=== PATIENT | male | born 2000 | race Caucasian/White ===

== ENCOUNTER 2018-12-10 16:22 | Observation (INO) ==
[2018-12-10] MEDS ORDERED: KETOROLAC 30 MG/ML VIAL IV STA (17:05)
[2018-12-10] MEDS ORDERED: SODIUM CHLORIDE 0.9% 1000ML 1,000 ML IV SCH (17:15)
[2018-12-10 17:59] LABS: Basophils # (auto) 0.01 K/uL (0-0.2); Basophils % (auto) 0.1 %; Hematocrit (blood only) 49.1 % (42-52); Hemoglobin 17.6 g/dL (14.0-18.0); Immature Granulocytes # (auto) 0.03 K/uL (0.00-0.02); Immature Granulocytes % (auto) 0.2 %; Lymphocytes # (auto) 0.97 K/uL (1.2-3.4); Lymphocytes % (auto) 6.8 %; Mean Corpuscular Hemoglobin 29.9 pg (25-34); Mean Corpuscular Hgb Conc 35.8 g/dL (32-36); Mean Corpuscular Volume 83.5 fL (80-100); Mean Platelet Volume 11.3 fL (7.4-10.4); Monocytes # (auto) 0.65 K/uL (0.11-0.59); Monocytes % (auto) 4.6 %; Neutrophils # (auto) 12.59 K/uL (1.4-6.5); Neutrophils % (auto) 88.3 %; Platelet Count 225 K/uL (130-400); RDW Coefficient of Variation 13.2 % (11.5-14.5); RDW Standard Deviation 39.8 fL (36.4-46.3); Red Blood Count 5.88 M/uL (4.7-6.1); White Blood Count 14.25 K/uL (4.8-10.8)
[2018-12-10 18:19] LABS: Albumin Level 5.6 gm/dl (3.4-5.0); BUN Creatinine Ratio 15.8 (10-20); Calcium 10.1 mg/dl (8.5-10.1); Creatinine Clr Calc Pharmacy 97.3 ml/min; Est GFR (African American) 101.3; Est GFR (Non-African American) 87.4; Potassium 3.1 mmol/L (3.5-5.1)
[2018-12-10 18:22] LABS: Albumin Globulin Ratio 1.3 (0.9-2); Bilirubin,Total 0.9 mg/dl (0.2-1); Globulin 4.2 gm/dl (2.5-4.0); Total Protein 9.8 gm/dl (6.4-8.2)
[2018-12-10] MEDS ORDERED: IOVERSOL 100ml IV PRN (18:48)
--- NOTE | 2018-12-10 19:16 | CT Scan Report ---
CT OF THE ABDOMEN AND PELVIS WITH CONTRAST CLINICAL HISTORY: Epigastric pain. COMPARISON STUDY: None. TECHNIQUE: Following IV administration of 92 mL of Optiray-320, axial images of the abdomen and pelvi s were obtained from the lung bases to the proximal femurs. Images were reviewed in the axial, sagitt al, and coronal planes. IV contrast was administered without complication. Automated exposure contro l was utilized for the study. A dose lowering technique was utilized adhering to the principles of A CONG. CT DOSE: 267.06 mGy.cm FINDINGS: Lung bases are unremarkable. No no pneumatosis, free air or portal venous gas is present. T here is periportal edema within the liver. Mild pericholecystic fluid is noted. The spleen, adrenal g lands, kidneys and pancreas are normal. There is no hydronephrosis. There is no biliary or pancreatic ductal dilatation. There is no peripancreatic infiltration. There is no evidence for a bowel obstruc tion. The appendix is normal. Trace fluid within the pelvis is noted. There is no abscess. Major vasc ulature is patent. Apparent wall thickening of the ascending colon and transverse colon is likely due to underdistention. Wall thickening of several portions of the colon and rectum is probably due to u nderdistention. No suspicious osseous lesions are noted. IMPRESSION: 1. Mild pericholecystic fluid. This is nonspecific and may be related to hydration given periportal e laura however a right quadrant ultrasound is recommended to exclude acute cholecystitis. 2. Normal appendix. No bowel obstruction. 3. Apparent wall thickening of several portions of the colon and rectum which is likely due to underd istention. A mild nonspecific colitis could appear similar. 4. Trace fluid within the pelvis. Electronically signed by: Ignacio Pereyra M.D. 12/10/2018 7:14 PM
--- NOTE | 2018-12-10 20:23 | Ultrasound Report ---
US gallbladder CLINICAL HISTORY: Abdominal pain. COMPARISON STUDY: CT of the abdomen and pelvis December 10, 2018. FINDINGS: The liver is sonographically normal. There is no biliary ductal dilatation. The common bile duct measures 3 mm in caliber. There are multiple stones within the gallbladder. The gallbladder is mildly distended. Mild gallbladder wall thickening is noted. Sonographic Ortega sign could not be ass essed for this patient. There is trace pericholecystic fluid. The pancreas is within normal limits al though the tail is slightly obscured. There is no right hydronephrosis. IMPRESSION: 1. Cholelithiasis, mild gallbladder wall thickening and trace pericholecystic fluid. These findings f avor acute cholecystitis. 2. No biliary ductal dilatation. Electronically signed by: Ignacio Pereyra M.D. 12/10/2018 8:22 PM
[2018-12-10] MEDS ORDERED: SODIUM CHLORIDE 0.9% 1000ML 1,000 ML IV ONE (20:45)
--- NOTE | 2018-12-10 21:39 | History & Physical Report ---
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 The pain is mainly right sided with radiation to the back, his pain is better after pain medication. He has had nausea without vomiting and has been anorexic today. He denies cahnge in bowel habits or urinary symptoms. A CT scan and US both are consistent with acute cholecystitis with pericholecystic fluid and a thickened wall, His WBC is 14. He has been afebrile. Allergies Allergy/AdvReac Type Severity Reaction Status Date / Time No Known Allergies Allergy Unverified 12/10/18 18:08 Home Medications Home Medications Medication Instructions Recorded Confirmed Type No Known Home Medications 12/10/18 12/10/18 History Past Med/Surg History Medical History No pertinent past medical history Social History Preferred Language: Cambodian Feels Safe at Home: Yes Smoking Status: Never smoker Review of Systems + anorexia; no fever, no chills and no sweats no scleral icterus no problem reported no cough and no dyspnea no chest pain and no dyspnea + abdominal pain and + nausea; no vomiting and no change in stools no dysuria + back pain; no neck pain and no joint pain no pruritus, no yellowing of the skin and no problem reported no localized weakness and no generalized weakness no depression no problem reported no problem reported no problem reported Physical Exam Constitutional: well developed and well nourished; no acute distress Eyes: + anicteric sclerae and PERRL ENMT: external ear and nose normal, oropharynx normal Neck: trachea midline Respiratory: normal respiratory effort, lungs clear to auscultation Cardiovascular: RRR, no murmur, no edema Gastrointestinal (Abdomen): Inspection/Auscultation: abdomen normal to inspection and normal bowel sounds; abdomen not distended Percussion/Palpation: + abdomen tender and abdomen soft; no guarding Musculoskeletal: Head/Neck/Chest: normocephalic and head atraumatic Skin: no rashes, warm and dry Neurologic: moves all extremities Psychiatric: Orientation: alert and oriented x 3 ASA Classification ASA ASA1E Results & Data Vital Signs (Past 12 Hours) Vital Signs Temp Pulse Pulse Resp BP BP Pulse Ox 12/10/18 19:13 72 18 122/87 99 12/10/18 16:33 36.5 C 70 18 121/72 95 US gallbladder CLINICAL HISTORY: Abdominal pain. COMPARISON STUDY: CT of the abdomen and pelvis December 10, 2018. FINDINGS: The liver is sonographically normal. There is no biliary ductal dilatation. The common bile duct measures 3 mm in caliber. There are multiple stones within the gallbladder. The gallbladder is mildly distended. Mild gallbladder wall thickening is noted. Sonographic Ortega sign could not be assessed for this patient. There is trace pericholecystic fluid. The pancreas is within normal limits although the tail is slightly obscured. There is no right hydronephrosis. IMPRESSION: 1. Cholelithiasis, mild gallbladder wall thickening and trace pericholecystic fluid. These findings favor acute cholecystitis. 2. No biliary ductal dilatation. CT OF THE ABDOMEN AND PELVIS WITH CONTRAST CLINICAL HISTORY: Epigastric pain. COMPARISON STUDY: None. TECHNIQUE: Following IV administration of 92 mL of Optiray-320, axial images of the abdomen and pelvis were obtained from the lung bases to the proximal femurs. Images were reviewed in the axial, sagittal, and coronal planes. IV contrast was administered without complication. Automated exposure control was utilized for the study. A dose lowering technique was utilized adhering to the principles of ALARA. CT DOSE: 267.06 mGy.cm FINDINGS: Lung bases are unremarkable. No no pneumatosis, free air or portal venous gas is present. There is periportal edema within the liver. Mild pericholecystic fluid is noted. The spleen, adrenal glands, kidneys and pancreas are normal. There is no hydronephrosis. There is no biliary or pancreatic ductal dilatation. There is no peripancreatic infiltration. There is no evidence for a bowel obstruction. The appendix is normal. Trace fluid within the pelvis is noted. There is no abscess. Major vasculature is patent. Apparent wall thickening of the ascending colon and transverse colon is likely due to underdistention. Wall thickening of several portions of the colon and rectum is probably due to underdistention. No suspicious osseous lesions are noted. IMPRESSION: 1. Mild pericholecystic fluid. This is nonspecific and may be related to hydr ation given periportal edema however a right quadrant ultrasound is recommended to exclude acute cholecystitis. 2. Normal appendix. No bowel obstruction. 3. Apparent wall thickening of several portions of the colon and rectum which is likely due to underdistention. A mild nonspecific colitis could appear similar. 4. Trace fluid within the pelvis. Code Status & VTE Plan VTE Prophylaxis Plan VTE Prophylaxis will be ordered: Yes
--- NOTE | 2018-12-10 22:23 | Emergency Department Note ---
Entered by Dulce Metz acting as a scribe for History of Present Illness General Chief complaint: Abdominal Pain Stated complaint: SEVERE STOMACH PAIN Time Seen by Provider: 12/10/18 16:59 Source: patient Limitations: no limitations History of Present Illness Provider complaint: Abdominal Pain Onset (ago): week(s) 1 Location: abdomen Radiation: back Severity: severe Pain Consistency: + intermittent Maximum Pain Intensity: 7 Current Pain Intensity: 7 Quality: + sharp Relieved By: + none Exacerbated By: + other (milk) Associated symptoms: + denies other symptoms Treatments prior to arrival: none The patient is a 18 year old who presents to the Emergency Department with complaints of severe abdominal pain that began 5 hours ago. The pain radiates into his back and rib cage. The patient had similar symptoms that resolved within two hours one week ago and three days ago he had an episode that lasted one hour. He has had normal bowel movements. The patient has had no recent surgeries. He denies having a fever, headache, or urinary symptoms. The patient has not traveled anywhere recently and is not allergic to anything. The patient rate his pain as a 7 out of 10 in severity. Home Medications Home Medications Medication Instructions Recorded Confirmed Type No Known Home Medications 12/10/18 12/10/18 History Allergies Allergy/AdvReac Type Severity Reaction Status Date / Time No Known Allergies Allergy Unverified 12/10/18 18:08 Past Med/Surg History Medical History No pertinent past medical history Social History Preferred Language: Samoan Communication Ability: Effective User Interface Artist Required: No Beliefs That Will Affect Care: None Current Living Situation: Alone Other Information That Helps Us Care for You: No Feels Safe at Home: Yes Safety Concerns: Feels Safe At This Time Smoking Status: Never smoker Hx Alcohol Use: No Hx Substance Use: No Review of Systems See HPI for pertinent positives & negatives. and A total of 10 systems reviewed and were otherwise negative Physical Exam Vital Signs Vital Signs - 24 hr 12/10/18 16:33 12/10/18 19:13 Temperature 36.5 C Temperature Source Oral Sepsis Recent Fever Within 48 Hours No Sepsis New/Unexplained Change in Mental Status No Sepsis Action Taken by Nursing No Action Required Pulse Rate 70 Pulse Rate [Right Finger] 72 Respiratory Rate 18 18 Respiratory Effort / Characteristics Non-Labored Spontaneous Respiratory Depth Normal Respiratory Pattern Regular Blood Pressure 121/72 Blood Pressure [Right Arm] 122/87 Blood Pressure Mean 88 Blood Pressure Mean [Right Arm] 98 Blood Pressure Position Sitting Blood Pressure Position [Right Arm] Lying Pulse Oximetry 95 99 Oxygen Delivery Method Room Air General: Non-ill appearing uncomfortable appearing male in no acute distress. Complaints of epigastric pain. HEENT: Normal cephalic atraumatic. Pupils are equal round and reactive to light. Extraocular movements are intact. Oropharynx is pink with moist mucous membranes. No swelling of the mouth lips or tongue. Neck: Supple with a midline trachea. No meningeal signs or stiffness, no JVD or bruits. No Stridor. Chest: Clear to auscultation bilaterally. No wheezes or rhonchi. No increased work of breathing. Heart: regular rate and rhythm. Abdomen: Tender to palpation in the epigastric area, no lower abdominal tend erness, nondistended without rebound guarding or rigidity. Extremities: No cyanosis clubbing or edema. No calf tenderness or asymmetry Spine/Back. Non tender to palpation. No CVA tenderness Skin: Good turgor without rashes. Neurologic exam: Cranial nerves two through 12 are intact. Motor and sensation are intact and symmetrical throughout. Course 170: Medical records reviewed. The patient was seen in room C8, a physical exam was performed. 1699: Appears more comfortable, ordered CT scan. 1939: The patient declines further pain medications, he is feeling better. 2046: I spoke with general surgery who agreed to come in a see the patient. 2138: I spoke with Dr. Sullivan, General Surgery, who agreed to accept the patient for further evaluation. Administered Medications Ampicillin Sodium/Sulbactam Sodium 3,000 mg/ Sodium Chloride 108 mls @ 200 mls/hr IV Q6H [facility]; Protocol Stop: 12/20/18 22:59 Last Admin: 12/10/18 23:29 Dose: 200 mls/hr Documented by: [id number] Ioversol (Optiray 320 100ml) 92 ml IV ONCE PRN PRN Reason: Interaction Checking Stop: 12/14/18 18:47 Last Admin: 12/10/18 18:49 Dose: 92 ml Documented by: [id number] Discontinued Medications Sodium Chloride (Nss 1000ml) 1,000 mls @ 999 mls/hr IV .Q1H1M [facility] Stop: 12/10/18 18:15 Last Infusion: 12/10/18 18:35 Dose: 0 mls/hr Documented by: [id number] Admin: 12/10/18 17:36 Dose: 999 mls/hr Documented by: [id number] Sodium Chloride (Nss 1000ml) 1,000 mls @ 999 mls/hr IV .Q1H1M ONE Stop: 12/10/18 21:45 Last Infusion: 12/10/18 22:19 Dose: 0 mls/hr Documented by: [id number] Admin: 12/10/18 20:47 Dose: 999 mls/hr Documented by: [id number] Ketorolac Tromethamine (Toradol) 30 mg IV NOW STA Stop: 12/10/18 17:06 Last Admin: 12/10/18 17:36 Dose: 30 mg Documented by: [id number] Ondansetron HCl (Zofran) 4 mg IV NOW STA Stop: 12/10/18 22:37 Last Admin: 12/10/18 23:28 Dose: 4 mg Documented by: [id number] Medical Decision Making Differential Diagnosis Differential Diagnosis: Pancreatitis, gall bladder disease, gastritis, lactose intolerance, electrolyte or metabolic abnormality. Medical Records Attestation: I reviewed the patient's medical records. Home Medications Current Medication List: was personally reviewed by me Laboratory Data Attestation: I reviewed the patient's lab results. Result diagrams: 12/10/18 17:27 12/10/18 17:27 Lab Results 12/10/18 12/10/18 Range/Units 17:27 17:27 WBC 14.25 H (4.8-10.8) K/uL RBC 5.88 (4.7-6.1) M/uL Hgb 17.6 (14.0-18.0) g/dL Hct 49.1 (42-52) % MCV 83.5 (80-100) fL MCH 29.9 (25-34) pg MCHC 35.8 (32-36) g/dL RDW Std Deviation 39.8 (36.4-46.3) fL RDW Coeff of Dion 13.2 (11.5-14.5) % Plt Count 225 (130-400) K/uL MPV 11.3 H (7.4-10.4) fL Immature Gran % (Auto) 0.2 % Neut % (Auto) 88.3 % Lymph % (Auto) 6.8 % [place] % (Auto) 4.6 % Eos % (Auto) 0.0 % Baso % (Auto) 0.1 % Immature Gran # (Auto) 0.03 H (0.00-0.02) K/uL Neut # (Auto) 12.59 H (1.4-6.5) K/uL Lymph # (Auto) 0.97 L (1.2-3.4) K/uL Churchill # (Auto) 0.65 H (0.11-0.59) K/uL Eos # (Auto) 0.00 (0-0.5) K/uL Baso # (Auto) 0.01 (0-0.2) K/uL Sodium 137 (136-145) mmol/L Potassium 3.1 L (3.5-5.1) mmol/L Chloride 101 (98-107) mmol/L Carbon Dioxide 27 (21-32) mmol/L Anion Gap 9.0 (3-11) BUN 19 H (7-18) mg/dl Creatinine 1.19 (0.6-1.4) mg/dl Est Cr Clr Drug Dosing 97.3 ml/min Est GFR ( Amer) 101.3 Est GFR (Non-Af Amer) 87.4 BUN/Creatinine Ratio 15.8 (10-20) Glucose 99 (70-99) mg/dl Calcium 10.1 (8.5-10.1) mg/dl Total Bilirubin 0.9 (0.2-1) mg/dl AST 31 (15-37) U/L ALT 59 (12-78) U/L Alkaline Phosphatase 76 (45-117) U/L Total Protein 9.8 H (6.4-8.2) gm/dl Albumin 5.6 H (3.4-5.0) gm/dl Globulin 4.2 H (2.5-4.0) gm/dl Albumin/Globulin Ratio 1.3 (0.9-2) Lipase 119 (73-393) U/L Imaging Data Radiologist's Impression: Radiology results as stated below per my review and the radiologist's interpretation: CT OF THE ABDOMEN AND PELVIS WITH CONTRAST CLINICAL HISTORY: Epigastric pain. COMPARISON STUDY: None. TECHNIQUE: Following IV administration of 92 mL of Optiray-320, axial images of the abdomen and pelvis were obtained from the lung bases to the proximal femurs. Images were reviewed in the axial, sagittal, and coronal planes. IV contrast was administered without complication. Automated exposure control was utilized for the study. A dose lowering technique was utilized adhering to the principles of ALARA. CT DOSE: 267.06 mGy.cm FINDINGS: Lung bases are unremarkable. No no pneumatosis, free air or portal venous gas is present. There is periportal edema within the liver. Mild per icholecystic fluid is noted. The spleen, adrenal glands, kidneys and pancreas are normal. There is no hydronephrosis. There is no biliary or pancreatic ductal dilatation. There is no peripancreatic infiltration. There is no evidence for a bowel obstruction. The appendix is normal. Trace fluid within the pelvis is noted. There is no abscess. Major vasculature is patent. Apparent wall thickening of the ascending colon and transverse colon is likely due to underdistention. Wall thickening of several portions of the colon and rectum is probably due to underdistention. No suspicious osseous lesions are noted. IMPRESSION: 1. Mild pericholecystic fluid. This is nonspecific and may be related to hydration given periportal edema however a right quadrant ultrasound is recommended to exclude acute cholecystitis. 2. Normal appendix. No bowel obstruction. 3. Apparent wall thickening of several portions of the colon and rectum which is likely due to underdistention. A mild nonspecific colitis could appear similar. 4. Trace fluid within the pelvis. Electronically signed by: Ignacio Pereyra M.D. 12/10/2018 7:14 PM US gallbladder CLINICAL HISTORY: Abdominal pain. COMPARISON STUDY: CT of the abdomen and pelvis December 10, 2018. FINDINGS: The liver is sonographically normal. There is no biliary ductal dilatation. The common bile duct measures 3 mm in caliber. There are multiple stones within the gallbladder. The gallbladder is mildly distended. Mild gallbladder wall thickening is noted. Sonographic Ortega sign could not be assessed for this patient. There is trace pericholecystic fluid. The pancreas is within normal limits although the tail is slightly obscured. There is no right hydronephrosis. IMPRESSION: 1. Cholelithiasis, mild gallbladder wall thickening and trace pericholecystic fluid. These findings favor acute cholecystitis. 2. No biliary ductal dilatation. Electronically signed by: Ignacio Pereyra M.D. 12/10/2018 8:22 PM Blood Pressure Blood Pressure Findings: Elevated blood pressure Blood Pressure Disposition: further management by hospitalist MERCEDES Feliz This patient comes in as described above. he has had intermittent severe abdominal pain off and on for couple days when I saw him initially he has been having pain in the epigastric area and to a lesser degree the right upper abdomen. He appears uncomfortable. He has noticed it more after he has dairy. He has had no fever or chills. IV access established and he was kept n.p.o. He was given 2 L of IV normal saline boluses while he was in the ER and tolerated these well. His white count is elevated 14. He has no acute electrolyte or metabolic abnormalities. his LFTs are unremarkable. He has nothing she has a UTI or kidney stone. I did do a CAT scan of the abdomen and he has a normal appendix. there is some small potential pericholecystic fluid and ultrasound of the gallbladder was recommended this was obtained and shows findings likely consistent with acute cholecystitis. his gallbladder is mildly enlarged and there is some stones and a small amount of fluid li. Based on this, I consulted Dr. Rod, on-call surgeon, who promptly came and saw the patient. He is can keep him on IV fluids and IV antibiotics overnight and likely perform gallbladder surgery tomorrow. Impression & Plan Acute cholecystitis, Right upper quadrant abdominal pain, Gallstone, Dehydration Discharge Plan Visit Data *Final* Discharge Date/Time: 12/10/18 22:21 Chief Complaint: Abdominal Pain Stated Complaint: SEVERE STOMACH PAIN ED Provider: Abbe Cain Discharge Problem: Acute cholecystitis, Right upper quadrant abdominal pain, Gallstone, Dehydration Patient Disposition: Admitted As Inpatient Discharge Instructions Interventions: ED Discharge Assessment Last Done: 12/10/18 22:21 Discharge Problem: Gallstone Qualifiers: Cholecystitis presence: with cholecystitis Cholecystitis acuity: acute Biliary obstruction: without biliary obstruction Qualified Code(s): K80.00 - Calculus of gallbladder with acute cholecystitis without obstruction The scribe's documentation has been prepared under my direction and personally reviewed by me in its entirety. I confirm that the note above accurately reflects all work, treatment, procedures, and medical decision making performed by me.
[2018-12-10] MEDS ORDERED: MoRPHine SULFATE 10 MG/ML CARP/VIAL IV PRN (22:36)
[2018-12-10] MEDS ORDERED: MoRPHine SULFATE 4 MG/ML 1 ML CARP\\VIAL IV PRN (22:36)
[2018-12-10] MEDS ORDERED: IBUPROFEN 200 MG TAB PO PRN (22:36)
[2018-12-10] MEDS ORDERED: OXYCODONE/ACETAMINOPHEN 5mg/325mg TAB PO PRN ×2 (22:36)
[2018-12-10] MEDS ORDERED: MoRPHine SULFATE 2 MG/ML CARP IV PRN (22:36)
[2018-12-10] MEDS ORDERED: ACETAMINOPHEN 325 MG TAB PO PRN (22:36)
[2018-12-10] MEDS ORDERED: ONDANSETRON INJ 2 MG/ML 2 ML VIAL IV STA (22:36)
[2018-12-10] MEDS: AMPICILLIN/SULBACTAM SOD 3,000 MG in 0.9 % SODIUM CHLORIDE 100 ML IV SCH (23:29)
[2018-12-11] MEDS: LACTATED RINGER'S 1,000 ML IV SCH ×4 (00:06→19:04)
[2018-12-11] MEDS: AMPICILLIN/SULBACTAM SOD 3,000 MG in 0.9 % SODIUM CHLORIDE 100 ML IV SCH ×4 (05:08→22:08)
[2018-12-11] MEDS ORDERED: CEFAZOLIN 2000MG 2,000 MG/15 ML SYR IV SCH (06:00)
--- NOTE | 2018-12-11 09:32 | Surgery Progress Note ---
Date of Service December 11, 2018 Assessment & Plan (1) Acute cholecystitis: Proceed with laparoscopic cholecystectomy today. Informed pt of procedure and risks and informed consent obtained by Dr. Barry. Continue IV abx , IV fluids, pain management as needed Will likely go home tomorrow morning Dr. Barry has seen pt, agrees with above. Subjective not having any pain this morning no n/v no chest pain/shortness of breath talked with his uncle who recommended proceeding with cholecystectomy. He wants to proceed with procedure today. Physical Exam Constitutional: WD/WN, vitals as above Respiratory: normal respiratory effort; no respiratory distress Skin: no rashes, warm and dry Psychiatric: A+Ox3, euthymic affect Results & Data Vital Signs (Past 12 Hours) Vital Signs Temp Pulse Resp BP Pulse Ox 12/11/18 07:32 36.7 C 68 16 106/61 98 12/10/18 22:30 36.9 C 90 16 128/75 97
[2018-12-11 11:42] LABS: Appearance Urine Clear (Clear); Bilirubin Urine Negative (Negative); Blood Urine Negative (Negative); Color Urine Yellow; Glucose Urine UA Negative (Negative); Ketones Urine Negative (Negative); Leukocyte Esterase Urine Negative (Negative); Nitrite Urine Negative (Negative); Protein Urine Negative (Negative); Specific Gravity Urine 1.017 (1.000-1.030); Urobilinogen Urine Negative (Negative)
--- NOTE | 2018-12-11 12:35 | Anesthesiology Consultation ---
Date of Service December 11, 2018 Assessment & Plan (1) Encounter for pre-operative examination: History Surgery Operation Date: 12/11/18 07:00 Proposed Procedures p Laparoscopic Cholecystectomy, Possible Cholangiogram - Too Barry MD Height/Weight Height: 5 ft 10 in Weight: 69.5 kg Allergies Allergy/AdvReac Type Severity Reaction Status Date / Time No Known Allergies Allergy Unverified 12/10/18 18:08 Medications Home Medications Medication Instructions Recorded Confirmed Last Taken No Known Home Medications 12/10/18 12/10/18 Unknown oxycodone-acetaminophen [Percocet] 1 tab PO Q4H PRN #10 tab 12/11/18 Unknown Active Medications Generic Name Dose Route Start Last Admin Trade Name Freq PRN Reason Stop Dose Admin Ampicillin Sodium/Sulbactam 108 mls @ 200 mls/hr 12/10/18 23:00 12/11/18 05:41 Sodium 3,000 mg/ Sodium IV 12/20/18 22:59 Infused Chloride Q6H [facility] Infusion Protocol Lactated Ringer's 1,000 mls @ 125 mls/hr 12/10/18 22:36 12/11/18 08:20 Lr IV 01/09/19 22:35 125 mls/hr .Q8H [facility] Administration Ioversol 92 ml 12/10/18 18:48 12/10/18 18:49 Optiray 320 100ml IV 12/14/18 18:47 92 ml ONCE PRN Administration Interaction Checking NPO Date Last Intake of Fluids: 12/10/18 Time Last Intake of Fluids: 23:59 Date Last Intake of Solids: 12/10/18 Time Last Intake of Solids: 23:59 Past Medical History Medical History No pertinent past medical history Social History Smoking Status: Never smoker Hx Alcohol Use: No Hx Substance Use: No Physical Exam Vital Signs Last Vital Signs Temp 36.7 C 12/11/18 07:32 Pulse 68 12/11/18 07:32 Resp 16 12/11/18 07:32 BP 106/61 12/11/18 07:32 Pulse Ox 98 12/11/18 07:32 Testing Laboratory Results 12/10/18 17:27 12/10/18 17:27 Urine Color Yellow 12/11/18 11:25 Urine Appearance Clear (Clear) 12/11/18 11:25 Urine pH 7.0 (4.5-7.5) 12/11/18 11:25 Ur Specific [place] 1.017 (1.000-1.030) 12/11/18 11:25 Urine Protein Negative (Negative) 12/11/18 11:25 Urine Glucose (UA) Negative (Negative) 12/11/18 11:25 Urine Ketones Negative (Negative) 12/11/18 11:25 Urine Nitrite Negative (Negative) 12/11/18 11:25 Ur Leukocyte Esterase Negative (Negative) 12/11/18 11:25
[2018-12-11] MEDS ORDERED: ATROPINE SULFATE 0.1 MG/ML 10ML SYR IV PRN (12:43)
[2018-12-11] MEDS ORDERED: fentaNYL citrate 100 MCG/2 ML VIAL IV PRN (12:43)
[2018-12-11] MEDS ORDERED: ONDANSETRON INJ 2 MG/ML 2 ML VIAL IV PRN (12:43)
[2018-12-11] MEDS ORDERED: ePHEDrine sulfate 50 MG/ML AMP IV PRN (12:43)
[2018-12-11] MEDS ORDERED: HYDROmorphone INJ 1 MG/ML SYRINGE IV PRN (12:43)
[2018-12-11] MEDS ORDERED: CEFAZOLIN 2000MG 2,000 MG/15 ML SYR IV ONE (12:59)
--- NOTE | 2018-12-11 12:59 | History & Physical Bridge Note ---
Date of Service December 11, 2018 History & Physical Bridge Note I have examined the patient, reviewed the History & Physical and in the interval since the performance of the History & Physical I have noted the following changes of clinical significance: no changes noted
[2018-12-11] MEDS ORDERED: NEOSTIGMINE METHYLSULFATE 5 MG/5 ML SYR ONE (13:19)
[2018-12-11] MEDS ORDERED: SUCCINYLCHOLINE CHLORIDE 20 MG/ML 10 ML VIAL ONE (13:19)
[2018-12-11] MEDS ORDERED: GLYCOPYRROLATE 0.2 MG/ML VIAL ONE (13:19)
[2018-12-11] MEDS ORDERED: DEXAMETHASONE SOD INJ 4 MG/ML VIAL ONE (13:19)
[2018-12-11] MEDS ORDERED: PHENYLEPHRINE HCL 10 MG/ML VIAL ONE (13:19)
[2018-12-11] MEDS ORDERED: ePHEDrine sulfate 50 MG/ML AMP ONE (13:19)
[2018-12-11] MEDS ORDERED: LIDOCAINE HCL 2% 2 ML VIAL/AMP(20MG/ML) INFIL ONE (13:19)
[2018-12-11] MEDS ORDERED: PROPOFOL IV EMULSION 10 MG/ML 20 ML VIAL IV ONE (13:19)
[2018-12-11] MEDS ORDERED: MIDAZOLAM HCL 1 MG/ML 2ML VIAL ONE (13:19)
[2018-12-11] MEDS ORDERED: ONDANSETRON INJ 2 MG/ML 2 ML VIAL ONE ×2 (13:19→15:32)
[2018-12-11] MEDS ORDERED: fentaNYL citrate 100 MCG/2 ML VIAL ONE (13:20)
[2018-12-11] MEDS ORDERED: BACITRACIN OINT 15 GM TUBE ONE (13:50)
[2018-12-11] MEDS ORDERED: BUPIVACAINE 0.5 % 5 MG/1 ML MPF 30ML VIAL ONE (13:50)
[2018-12-11] MEDS ORDERED: LIDOCAINE HCL 1% 20 ML VIAL ONE (13:50)
[2018-12-11] MEDS ORDERED: CONRAY 60% 50 ML VIAL ONE (13:51)
[2018-12-11] MEDS ORDERED: POTASSIUM CHLORIDE 30 MEQ in SODIUM CHLORIDE 0.9% 1000ML 1,000 ML IV SCH (14:00)
[2018-12-11] MEDS ORDERED: LARYING-O-JET KIT (LTA) ONE (15:10)
[2018-12-11] MEDS ORDERED: KETOROLAC 30 MG/ML VIAL ONE (15:35)
--- NOTE | 2018-12-11 15:50 | Post Operative Brief Note ---
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
--- NOTE | 2018-12-11 16:28 | Anesthesiology Progress Note ---
Date of Service December 11, 2018 Anesthesia Post Procedure Vital Signs Vital Signs: Temp Pulse Pulse Resp BP BP Pulse Ox 12/11/18 16:20 85 18 115/66 99 12/11/18 16:10 75 18 117/64 99 12/11/18 16:01 37.5 C 82 18 122/61 99 12/11/18 12:41 36.8 C 90 18 127/72 98 12/11/18 07:32 36.7 C 68 16 106/61 98 12/10/18 22:30 36.9 C 90 16 128/75 97 12/10/18 19:13 72 18 122/87 99 12/10/18 16:33 36.5 C 70 18 121/72 95 Pain Intensity Abdomen: Pain Intensity: 2 Transfer of Care Handoff Completed per policy Notes Mental Status: alert / awake / arousable and participated in evaluation Patient Amnestic to Procedure: Yes Nausea / Vomiting: adequately controlled Pain: adequately controlled Airway Patency, RR, SpO2: stable & adequate BP & HR: stable & adequate Hydration State: stable & adequate Anesthetic Complications: no major complications apparent and Pt Satisfied with anesthetic care
[2018-12-11] MEDS ORDERED: POTASSIUM CHLORIDE 10 MEQ TABCR PO STA (16:50)
--- NOTE | 2018-12-11 17:46 | Operative Report ---
DATE OF OPERATION: 12/11/2018 PREOPERATIVE DIAGNOSES: Acute cholecystitis, cholelithiasis. POSTOPERATIVE DIAGNOSES: Acute cholecystitis, cholelithiasis. PROCEDURE: Laparoscopic cholecystectomy. SURGEON: Too Barry MD. ANESTHESIA: General. ESTIMATED BLOOD LOSS: About 10 mL. FINDINGS: Significant inflammation on the gallbladder wall, gallbladder wall thickening and edema. COMPLICATIONS: None. INDICATIONS FOR THE PROCEDURE: This is a 18-year-old gentleman who presented to ED with acute abdominal pain. The patient was diagnosed of acute cholecystitis with gallstone and patient will be required to do laparoscopic cholecystectomy, possible open, possible cholangiogram. I did talk to the patient about the benefit and risk, alternate procedure. I indicated the risks may include but not limited such as bleeding, infection, injury to common bile duct, injury to the bowel, may need ERCP, even . The patient understands. He signed informed consent and I answered all questions. DETAILS OF PROCEDURE: We brought the patient to the OR, put the patient in the supine position. The patient received SCD on bilateral legs to prevent DVT. Also, patient received 2 grams of Ancef IV for prophylactic antibiotic. The patient received general anesthesia without difficulty. The abdomen was appropriately draped in routine sterile fashion. After time out, I injected local anesthesia by using 1% lidocaine mixed with 0.5% Marcaine just above umbilicus, made a small incision just above umbilicus, opened fascia and opened peritoneum under direct vision, put a Venkatesh trocar in, connected to CO2 to create pneumoperitoneum. Flow rate is 6 liter per minute. Pressure not more than 14 mmHg. Once we got a nice pneumoperitoneum, we put a camera in, looked around the abdomen shows normal finding of the liver. The gallbladder shows significant inflammation on the gallbladder wall, gallbladder wall thickening, edema, confirmed diagnosis of acute cholecystitis. Then, we put another three 5 mm trocars on the right upper quadrant. Once all the trocars are in, we put a grasper in and hold the base of the gallbladder, because of the gallbladder significant inflammation and distention, I have to use a large needle to decompress the gallbladder first. Then, we used a grasper to hold the base of gallbladder, put a direction to the diaphragm, another grasper to hold the pouch of gallbladder, put lateral to expunge triangle of Calot. The cystic duct was identified and mobilized. I put two 5 mm metal clip on the proximal cystic duct, one on the distal cystic duct. I used scissor for transection of the cystic duct. Rechecked and no bile leak, no active bleeding. The cystic artery was identified and mobilized. I put two 5 mm metal clip on the proximal cystic artery, 1 on the distal cystic artery, and used a scissor for transection of cystic artery. Rechecked, no active bleeding. Then we used the Bovie to take down gallbladder from the liver bed. Rechecked, no active bleeding, no bile leak and then we removed the gallbladder through the catch bag, then we reinserted Venkatesh trocar in, connected to CO2 to create pneumoperitoneum, again looked around the abdomen, no active bleeding, no bile leak from the liver bed. Then we removed all trocars under direct vision. No active bleeding from the trocar sites. Pneumoperitoneum was released. Then I closed the umbilical incision, fascial layer by using #1 Vicryl [id number] x2, closed subcutaneous layer by using 2-0 Vicryl interruptedly, closed skin by using 4-0 Vicryl continuous running, closed another three 5 mm trocar site skin-only by using 4-0 Vicryl. Then we put the dressing on. The patient tolerated the procedure well. All instrument, needle and sponge count were correct x2 at the end of the case. The patient transferred to recovery room in stable condition. After procedure, I did talk to the patient and family member about the OR finding and procedure we did, he understands. Also, I informed the patient and family member over the weekend other on-call surgeon will cover him, talk to him tomorrow. I attest to the content of the Intraoperative Record and any orders documented therein. Any exceptions are noted below. DAVID
[2018-12-12] MEDS: AMPICILLIN/SULBACTAM SOD 3,000 MG in 0.9 % SODIUM CHLORIDE 100 ML IV SCH ×2 (05:27→10:32)
[2018-12-12 07:18] LABS: Basophils # (auto) 0.01 K/uL (0-0.2); Basophils % (auto) 0.1 %; Hematocrit (blood only) 45.2 % (42-52); Hemoglobin 15.3 g/dL (14.0-18.0); Immature Granulocytes # (auto) 0.02 K/uL (0.00-0.02); Immature Granulocytes % (auto) 0.2 %; Lymphocytes # (auto) 0.99 K/uL (1.2-3.4); Lymphocytes % (auto) 10.6 %; Mean Corpuscular Hemoglobin 28.9 pg (25-34); Mean Corpuscular Hgb Conc 33.8 g/dL (32-36); Mean Corpuscular Volume 85.4 fL (80-100); Mean Platelet Volume 11.1 fL (7.4-10.4); Monocytes # (auto) 0.81 K/uL (0.11-0.59); Monocytes % (auto) 8.7 %; Neutrophils # (auto) 7.48 K/uL (1.4-6.5); Neutrophils % (auto) 80.4 %; Platelet Count 201 K/uL (130-400); RDW Coefficient of Variation 13.6 % (11.5-14.5); RDW Standard Deviation 42.4 fL (36.4-46.3); Red Blood Count 5.29 M/uL (4.7-6.1); White Blood Count 9.31 K/uL (4.8-10.8)
[2018-12-12 07:56] LABS: Albumin Globulin Ratio 1.1 (0.9-2); Albumin Level 4.1 gm/dl (3.4-5.0); Bilirubin,Total 0.8 mg/dl (0.2-1); Calcium 9.3 mg/dl (8.5-10.1); Creatinine Clr Calc Pharmacy 95.7 ml/min; Est GFR (African American) 99.3; Est GFR (Non-African American) 85.7; Globulin 3.7 gm/dl (2.5-4.0); Potassium 4.1 mmol/L (3.5-5.1); Total Protein 7.8 gm/dl (6.4-8.2)
--- NOTE | 2018-12-12 08:17 | Surgery Progress Note ---
Date of Service December 12, 2018 Assessment & Plan (1) S/P laparoscopic cholecystectomy: POD#1 laparoscopic cholecystectomy Patient progressing well post operatively; pain manageable and tolerating full liquids VSS WBC: 9.3, Tbili: 0.8, AST and ALT up a bit to 122 and 183 respectively Will advance diet as tolerated to regular Will anticipate discharge later today pending pain control and toleration of diet Supervising Physician Co-Signing Physician Notes Pnt S&E, agree with above. POD#1 lap cristin, doing well. incisions with dressing, some strikethrough, pain improved, nontender. d/c to home f/u with Dr. Barry in 2 weeks return precautions, activity restrictions, and wound care instructions reviewed Subjective Patient with some post op incisional pain, but otherwise no major complaints overnight. Tolerating liquid diet without nausea. Mother at bedside. Physical Exam Physical Exam: awake/alert Constitutional: well developed and well nourished; no acute distress Respiratory: normal respiratory effort Gastrointestinal (Abdomen): Inspection/Auscultation: + abdominal surgical incision (incisions with surgical bandages overtop, scant serosang shadowing) Percussion/Palpation: abdomen soft; abdomen nontender Results & Data Vital Signs (Past 12 Hours) Vital Signs Temp Pulse Resp BP BP Pulse Ox 12/12/18 07:49 36.9 C 64 16 115/63 98 12/12/18 03:04 36.8 C 60 16 107/62 96 12/11/18 23:20 36.9 C 69 16 113/69 97 PG Care Time/CCT Total # of Minutes Spent Total Time Spent with Patient: Total time spent is greater than 50% in coordination of care (as documented) at patient's floor/unit and/or counseling patient:
[2018-12-12] MEDS: LACTATED RINGER'S 1,000 ML IV SCH (09:36)
--- NOTE | 2018-12-14 12:58 | Discharge Summary ---
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 The pain is mainly right sided with radiation to the back, his pain is better after pain medication. He has had nausea without vomiting and has been anorexic today. He denies cahnge in bowel habits or urinary symptoms. A CT scan and US both are consistent with acute cholecystitis with pericholecystic fluid and a thickened wall, His WBC is 14. He has been afebrile. Principal Diagnosis acute calculous cholecystitis Discharge Data Allergies Allergy/AdvReac Type Severity Reaction Status Date / Time No Known Allergies Allergy Unverified 12/10/18 18:08 Procedures Performed Operation Date: 12/11/18 07:00 Actual Procedures p Laparoscopic Cholecystectomy(Not Applicable) - Too Barry MD Ordered Studies 12/10/18 18:06 CT abd pelvis IV con only Stat 12/10/18 19:28 US gallbladder Stat Hospital Course (1) Acute cholecystitis: Patient was admitted to medical/surgical floor from the emergency department by Dr. Rod as patient was unsure if he wanted to proceed with laparoscopic cholecystectomy. He was kept NPO and started on IV fluids, IV antibiotics, IV Zofran as needed for nausea and IV Pain medication. He was evaluated in the morning and pain was controlled and resolved but patient was electing to proceed with the surgery. Patient was taken to operating room in the afternoon on HD # [address] Barry. Patient was found to have acute cholec ystitis. Patient tolerated procedure well and was transferred to recovery and then back to medical/surgical floor for postoperative care. He was started on full liquids and pain management was continued. POD # 1 vss, afebrile, pain moderate but controlled, tolerating diet. Diet was advanced as tolerated. Patient was discharged home on POD # 1 in stable condition. Total Time Total Time Spent Total Time Spent (In Minutes): 10 Total Time Includes: Discharge Planning and Medication Reconciliation Discharge Plan Discharge Items Patient Disposition: Home - Self-Care Reason For Visit: ACUTE CHOLECYSTITIS Discharge Diagnosis: cholecystectomy Activity: As commented below Exercise/Sports: Wait until after follow-up appointment Non-emergency contact: Surgeon Call non-emergency contact if: your pain is worsening, your pain is concerning for you, you have a fever, your temperature is above 101, your wound has increased redness, your wound has increased drainage and your wound pain has increased Follow-up/Referrals: [facility] [Primary Care Provider] - Diet: Regular Addtl Attending Provider Instructions: Surgical discharge instructions: - No heavy lifting over 20 pounds for 4 weeks - No strenuous activity until cleared by surgeon - No submerging incisions underwater for 2 weeks (no bathing, swimming, or hot tubs) - No driving while taking narcotic pain medication or until you are pain free - You may shower 4 days after your surgery. Sponge bath and wash hair in meantime. Keep dressings dry. After 4 day remove outer dressings and shower. - Leave steri strips on incisions for 1 week and then remove. - Walking and light activity is encouraged daily to prevent blood clots from forming in your legs - You will be given prescription for narcotic pain medication (Percocet) as needed for moderate to severe pain. Take as directed. - May take extra strength Ibuprofen as needed for mild pain or in between doses of Percocet. - 600 mg of Ibuprofen every 6 hours as needed - May take OTC stool softener (Colace) while taking narcotic pain medication to avoid constipation/straining - Follow-up in surgical office in 2 weeks. Please call office at [phone] to make an appointment. Pending Studies at Discharge: Yes (Gallbladder pathology, will be reviewed at follow up visit) Stand-Alone Forms: [facility], Work/School Release (Inpt) Medications and DC Order Prescriptions: New oxycodone-acetaminophen [Percocet] 5-325 mg tablet 1 tab PO Q4H PRN (Reason: pain) Qty: 10 RF: 0 No Action No Known Home Medications RF: 0 Discharge Orders: Discharge Order (Routine); Ordered 12/12/18 Ordered By: Adenike Hubbard Admission Data Admit Date/Time: 12/10/18 21:56 Attending Provider: Too Barry Admit Provider: Job Rod Primary Care Provider: [facility] Other Interventions: Discharge Summary Assessment (RN) Last Done: 12/12/18 12:18 DC Date/Time DO NOT enter until pt leaves facility: 12/12/18 13:59
== END 2018-12-12 13:59 | disposition home or self-care (01) ==
LOC: ED 16:22 → 3W 16:22
DX: K80.12 Calculus of gallbladder with acute and chronic cholecystitis without obstruction